=== PATIENT | female | born 1940 | race Hispanic/Latino ===

== ENCOUNTER 2017-06-12 07:02 | Emergency (ER) | payer MEDICARE ==
[2017-06-12 07:19] VITALS: BP 153/58; PULSE 62; RESP 21; TEMP 97.5; O2SAT 99
[2017-06-12] MEDS ORDERED: Alum-Mag Hydrox-Simethicone Susp (30 mL) PO ONE (07:38)
--- NOTE | 2017-06-12 07:40 | ED PDOC ---
Upper Extremity Pain/Injury Time Seen by Provider: 06/12/17 07:14 Chief Complaint (Nursing): Upper Extremity Problem/Injury Chief Complaint (Provider): Upper Extremity Problem/Injury History Per: Patient History/Exam Limitations: no limitations Onset/Duration Of Symptoms: Other (x 6 weeks) Current Symptoms Are (Timing): Still Present Additional Complaint(s): Chelsi is a 77 year old female who presents to the emergency department complaining of right wrist pain for 6 weeks, but has recently worsen. Patient states window slid down on her right wrist. Denies taking any pain medications at home for pain. Denies any other injuries to any part of of her body. PMD: Jim Thompson Past Medical History Reviewed: Historical Data, Nursing Documentation, Vital Signs Vital Signs: Last Vital Signs Temp 97.5 F L 06/12/17 07:17 Pulse 62 06/12/17 07:17 Resp 21 06/12/17 07:17 BP 153/58 H 06/12/17 07:17 Pulse Ox 99 06/12/17 07:17 - Medical History PMH: Arthritis, Kidney Stones Denies: Chronic Kidney Disease - Surgical History Surgical History: Cholecystectomy - Family History Family History: States: Unknown Family Hx - Social History Current smoker - smoking cessation education provided: No Alcohol: None Drugs: Denies - Home Medications Home Medications: Ambulatory Orders Medication Instructions Recorded Nitrofurantoin Macrocrystals 100 mg PO BID #14 cap 12/15/15 [Macrobid] Acetaminophen [Tylenol 325mg tab] 650 mg PO Q4 PRN #15 tab 12/17/15 Ciprofloxacin [Cipro] 500 mg PO Q12 #14 tab 12/17/15 Ibuprofen [Motrin] 600 mg PO Q6 PRN #30 tab 06/12/17 - Allergies Allergies/Adverse Reactions: Allergies Allergy/AdvReac Type Severity Reaction Status Date / Time No Known Allergies Allergy Verified 12/15/15 00:07 Review of Systems ROS Statement: Except As Marked, All Systems Reviewed And Found Negative Musculoskeletal: Positive for: Other (Right Wrist Pain) Physical Exam - Reviewed Nursing Documentation Reviewed: Yes Vital Signs Reviewed: Yes - Physical Exam Extremity: Positive for: Normal ROM (Decreased ROM extension and flexion of right hand), Tenderness (Tenderness and swelling noted to right wrist), Other (( -): snuff box tenderness) - ECG O2 Sat by Pulse Oximetry: 99 (RA) Pulse Ox Interpretation: Normal Medical Decision Making Medical Decision Making: Time: 07:38 Impression: Wrist Injury r/o Fracture Plan: - Maalax Plus 30 ml - Motrin Tab 600 mg PO STAT - Right Hand X-Ray - Right X-Ray Time: 08:49 Right Hand X-Ray IMPRESSION: No definitive evidence of acute displaced fracture nor dislocation. . There is foreshortening of the trapezium which could be secondary to old trauma. 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 If symptoms persist or occult fracture suspected clinically recommend followup radiographs 7-10 days as most fractures should become radiographically evident in this timeframe. X-Ray (-) for acute fracture. Discussed imaging with radiologist. No evidence of AVN. Patient placed on a wrist wilma wrap. Upon provider evaluation patient is medically stable, and requires no further treatment in the ED at this time. Counseling was provided and all questions were answered regarding diagnosis. Advised to follow up with orthopedics.There is agreement to discharge plan. Return if symptoms persist or worsen. Scribe Attestation: Documented by Brandon Black, acting as a scribe for Kel Pavon MD. Provider Scribe Attestation: All medical record entries made by the Scribe were at my direction and personally dictated by me. I have reviewed the chart and agree that the record accurately reflects my personal performance of the history, physical exam, medical decision making, and the department course for this patient. I have also personally directed, reviewed, and agree with the discharge instructions and disposition. Disposition - Clinical Impression Clinical Impression: Wrist injury, Hand injury - Patient ED Disposition Is Patient to be Admitted: No - Disposition Referrals: Jim Thompson MD [Primary Care Provider] - Sidra Alexandre MD [Staff Provider] - Disposition Time: 09:03 Condition: IMPROVED Additional Instructions: Ms Nelson, thank you for letting us take care of you today. Your provider was Dr. Pavon. You were treated for Wrist Sprain. The emergency medical care you received today was directed at your acute symptoms. If you were prescribed any medication, please fill it and take as directed. It may take several days for your symptoms to resolve. Return to the Emergency Department if your symptoms worsen, do not improve, or if you have any other problems. Please contact your doctor or call one of the physicians/clinics you have been referred to that are listed on the Patient Visit Information form that is included in your discharge packet. Bring any paperwork you were given at discharge with you along with any medications you are taking to your follow up visit. Our treatment cannot replace ongoing medical care by a primary care provider (PCP) outside of the emergency department. Thank you for allowing the [facility] team to be part of your care today. If you had an X-Ray or CT scan: A Radiologist will review the ED reading if any change in treatment is needed we will contact you. If you had a blood, urine, or wound culture: It will take several days for the results, if any change in treatment is needed we will contact you. If you had an STI test: It will take 48 hours for the results. Please call after 1 week if you have not heard back. Prescriptions: Ibuprofen [Motrin] 600 mg PO Q6 PRN #30 tab PRN Reason: Pain, Moderate (4-7) Instructions: Hand Sprain (ED), Wrist Sprain (ED) Forms: [facility] ([facility])
--- NOTE | 2017-06-12 08:51 | RAD ---
PROCEDURE: Right Hand Radiographs. HISTORY: Status post fall. Rule out fracture. COMPARISON: Comparison/correlation made with radiographs concurrent radiographs of the right wrist. FINDINGS: BONES: Current study reveals no definitive evidence of acute displaced fracture nor dislocation. There does appear to be some foreshortening of the trapezium which could be secondary to sequela of old trauma. The osseous structures appear intact JOINTS: Moderate degenerative osteoarthritis seen at the level of the 1st metacarpal/ greater multangular with additional triscaphe DJD as well. Findings may represent old posttraumatic sequela. Mild DJD involving the 1st MCP joint also noted SOFT TISSUES: Normal. OTHER FINDINGS: None. IMPRESSION: No definitive evidence of acute displaced fracture nor dislocation. . There is foreshortening of the trapezium which could be secondary to old trauma. 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 If symptoms persist or occult fracture suspected clinically recommend followup radiographs 7-10 days as most fractures should become radiographically evident in this timeframe.
--- NOTE | 2017-06-12 09:28 | RAD ---
PROCEDURE: Right Wrist Radiographs. HISTORY: Status post fall. Rule out fracture. COMPARISON: None. FINDINGS: BONES: No definitive evidence of acute displaced fracture nor dislocation. There does appear to be some foreshortening of the trapezium which could be secondary to sequela of old trauma. JOINTS: Moderate degenerative osteoarthritis seen at the level of the 1st metacarpal/ greater multangular with additional triscaphe DJD as well. Findings may represent old posttraumatic sequela. Mild DJD involving the 1st MCP joint also noted SOFT TISSUES: Normal. OTHER FINDINGS: None. IMPRESSION: No definitive evidence of acute displaced fracture nor dislocation. . There is foreshortening of the trapezium which could be secondary to old trauma. 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 If symptoms persist or occult fracture suspected clinically recommend followup radiographs 7-10 days as most fractures should become radiographically evident in this timeframe.
== END 2017-06-12 09:21 | disposition home or self-care (01) ==
LOC: H.ER 07:02
DX: S69.91XA Unspecified injury of right wrist, hand and finger(s), initial encounter (principal); W22.8XXA Striking against or struck by other objects, initial encounter; Y92.89 Other specified places as the place of occurrence of the external cause